=== PATIENT | male | born 1950 | race African-American/Black ===

== ENCOUNTER 2024-05-18 20:44 | Inpatient (IN) | payer OTHER ==
[~2024-05-18] VITALS: Ht 170.2 cm; Wt 75.7 kg
[2024-05-18] MEDS: LEVETIRACETAM 500MG PREMIX 100 ML IV SCH (01:25)
[2024-05-18] MEDS ORDERED: NICARDIPINE 100 MG in SODIUM CHLORIDE 0.9% 60 ML IV PRN ×2 (22:30→22:45)
[2024-05-18] MEDS ORDERED: LEVETIRACETAM 500MG PREMIX 100 ML IV SCH (22:30)
[2024-05-18 22:31] LABS: HEMATOCRIT. 43.2 % (42.0-52.0); HEMOGLOBIN. 14.6 g/dL (14.0-18.0); MEAN CORPUSCULAR HEMOGLOBIN 33.5 pg (28.0-32.0); MEAN CORPUSCULAR HGB CONC 33.8 g/dL (31.0-37.0); MEAN CORPUSCULAR VOLUME 99.2 fL (80.0-94.0); PLATELET 223 x1000/uL (130-400); RED BLOOD CELL COUNT 4.35 mill/uL (4.7-6.1); RED CELL DISTRIBUTION WIDTH 15.3 % (11.6-14.6); WHITE BLOOD COUNT 17.7 x1000/uL (4.5-11.0)
[2024-05-18 22:35] LABS: DIFFERENTIAL COMMENT 1
[2024-05-18 22:43] LABS: CHLORIDE 104 mEq/L (98-107); POTASSIUM 3.6 mEq/L (3.5-5.1); SODIUM 139 mEq/L (136-145)
[2024-05-18 22:44] LABS: CALCIUM 9.1 mg/dL (8.7-10.4); CARBON DIOXIDE 28 mEq/L (21-32)
[2024-05-18 22:49] LABS: CREATININE 1.1 mg/dL (0.6-1.3); GLUCOSE 120 mg/dL (70-105); PROTHROMBIN TIME 11.6 sec (9.6-11.0)
[2024-05-18 22:50] LABS: AMMONIA < 17 uMol/L (<32); UREA NITROGEN BLOOD 49 mg/dL (9-23)
[2024-05-18 22:51] LABS: ALANINE AMINOTRANSFERASE 134 IU/L (10-49); ALBUMIN 3.8 g/dL (3.2-4.8); ASPARTATE AMINOTRANSFERASE 71 IU/L (<34); CREATINE KINASE 418 IU/L (46-171)
[2024-05-18 22:52] LABS: BILIRUBIN DIRECT 0.3 mg/dL (<=3.0); BILIRUBIN TOTAL 0.9 mg/dL (0.1-1.0); PROTEIN TOTAL 6.7 g/dL (6.0-8.3)
[2024-05-18 22:54] LABS: PLATELET ESTIMATE NORMAL; THYROID STIMULATING HORMONE 2.82 uIU/mL (0.55-4.78)
[2024-05-18] MEDS: NICARDIPINE 40MG/200ML PREMIX 200 ML IV PRN (22:54)
[2024-05-18] MEDS: LABETALOL 5MG/ML 4ML INJ IV PRN (22:54)
[2024-05-18 22:55] LABS: ANISOCYTOSIS 1+
[2024-05-18 22:59] LABS: ETHANOL BLOOD < 10 mg/dL (<10); TROPONIN I HIGH SENSITIVITY 69 ng/L (3.0-53)
[2024-05-19] VITALS (86 sets, daily range): BP systolic 83–159; BP diastolic 17–118; PULSE 58–107; RESP 13–40; TEMP 36.3918–37.16964; O2SAT 90–100
[2024-05-19] MEDS ORDERED: DEXAMETHASONE 4MG/ML 1ML VIAL IV SCH
[2024-05-19] MEDS: DEXAMETHASONE 4MG/ML 1ML VIAL IV SCH (01:24)
[2024-05-19] MEDS: DEXT 5%/LACTATED RINGERS 1,000 ML IV ONE (01:31)
[2024-05-19] MEDS: NICARDIPINE 100 MG in SODIUM CHLORIDE 0.9% 60 ML IV PRN (06:30)
[2024-05-19 06:32] LABS: CHLORIDE 104 mEq/L (98-107); HEMATOCRIT 42.2 % (42.0-52.0); HEMOGLOBIN 14.3 g/dL (14.0-18.0); MEAN CORPUSCULAR HEMOGLOBIN 33.9 pg (28.0-32.0); MEAN CORPUSCULAR HGB CONC 33.9 g/dL (31.0-37.0); PLATELET 200 x1000/uL (130-400); POTASSIUM 3.6 mEq/L (3.5-5.1); RED BLOOD CELL COUNT 4.22 mill/uL (4.7-6.1); SODIUM 138 mEq/L (136-145); WHITE BLOOD COUNT 15.7 x1000/uL (4.5-11.0)
[2024-05-19 06:33] LABS: CARBON DIOXIDE 28 mEq/L (21-32)
[2024-05-19 06:38] LABS: CREATININE 0.9 mg/dL (0.6-1.3); GLUCOSE 146 mg/dL (70-105); UREA NITROGEN BLOOD 42 mg/dL (9-23)
[2024-05-19 17:56] LABS: CLARITY URINE CLOUDY (CLEAR); COLOR URINE YELLOW (YELLOW); GLUCOSE URINE TRACE (NEGATIVE); KETONES URINE NEGATIVE (NEGATIVE); LEUKOCYTE ESTERASE URINE NEGATIVE (NEGATIVE); NITRITE URINE NEGATIVE (NEGATIVE); OCCULT BLOOD URINE NEGATIVE (NEGATIVE); PH URINE 5.5 (4.5-8.0); PROTEIN URINE TRACE (NEGATIVE); SPECIFIC GRAVITY URINE 1.026 (1.005-1.030)
[2024-05-19 18:23] LABS: *AMPHETAMINES SCREEN URINE NEGATIVE (NEGATIVE); *BARBITURATES SCREEN URINE PRESUMPTIVE POSITIVE (NEGATIVE); *BENZODIAZEPINES SCREEN URINE NEGATIVE (NEGATIVE); *COCAINE SCREEN URINE NEGATIVE (NEGATIVE); CANNABINOID URINE SCREEN NEGATIVE (NEGATIVE); ECSTASY MDMA SCREEN URINE NEGATIVE (NEGATIVE); METHADONE URINE SCREEN NEGATIVE (NEGATIVE); OPIATES URINE SCREEN NEGATIVE (NEGATIVE); PHENCYCLIDINE URINE SCREEN NEGATIVE (NEGATIVE)
[2024-05-19 18:28] LABS: BACTERIA URINE TRACE; RBC URINE NONE SEEN /hpf (0-2); SQUAMOUS EPITHELIAL CELL URINE FEW /lpf (RARE/1+); WBC URINE NONE SEEN /hpf (0-2)
[2024-05-20] VITALS (95 sets, daily range): BP systolic 102–145; BP diastolic 42–82; PULSE 52–96; RESP 9–26; TEMP 36.55848–36.9474; O2SAT 95–100
[2024-05-20 06:12] LABS: HEMATOCRIT. 40.6 % (42.0-52.0); HEMOGLOBIN. 13.8 g/dL (14.0-18.0); MEAN CORPUSCULAR HEMOGLOBIN 33.8 pg (28.0-32.0); MEAN CORPUSCULAR HGB CONC 33.9 g/dL (31.0-37.0); MEAN CORPUSCULAR VOLUME 99.4 fL (80.0-94.0); MEAN PLATELET VOLUME 9.2 fl (7.4-10.4); PLATELET 246 x1000/uL (130-400); RED BLOOD CELL COUNT 4.08 mill/uL (4.7-6.1); RED CELL DISTRIBUTION WIDTH 14.8 % (11.6-14.6); WHITE BLOOD COUNT 20.8 x1000/uL (4.5-11.0)
[2024-05-20 06:17] LABS: CARBON DIOXIDE 28 mEq/L (21-32); CHLORIDE 108 mEq/L (98-107); SODIUM 142 mEq/L (136-145)
[2024-05-20 06:19] LABS: CALCIUM 9.2 mg/dL (8.7-10.4)
[2024-05-20 06:23] LABS: CREATININE 0.8 mg/dL (0.6-1.3); GLUCOSE 178 mg/dL (70-105); UREA NITROGEN BLOOD 34 mg/dL (9-23)
[2024-05-20 06:36] LABS: DIFFERENTIAL COMMENT 1
[2024-05-20] MEDS: PANTOPRAZOLE SODIUM 40 MG/VIAL IV SCH (09:28)
[2024-05-20] MEDS ORDERED: NALOXONE HCL 0.4MG/ML VIAL IV PRN (13:00)
[2024-05-20] MEDS: DEXT 5%/LACTATED RINGERS 1,000 ML IV SCH (20:26)
[2024-05-21] VITALS (99 sets, daily range): BP systolic 92–157; BP diastolic 45–134; PULSE 55–95; RESP 9–30; TEMP 36.6696–36.9474; O2SAT 93–100
[2024-05-21 01:10] LABS: PLATELET ESTIMATE NORMAL
[2024-05-21 09:31] LABS: HEMATOCRIT 38.4 % (42.0-52.0); HEMOGLOBIN 13.1 g/dL (14.0-18.0); MEAN CORPUSCULAR HEMOGLOBIN 33.4 pg (28.0-32.0); MEAN CORPUSCULAR HGB CONC 34.1 g/dL (31.0-37.0); MEAN CORPUSCULAR VOLUME 98.1 fL (80.0-94.0); PLATELET 236 x1000/uL (130-400); RED BLOOD CELL COUNT 3.91 mill/uL (4.7-6.1); RED CELL DISTRIBUTION WIDTH 14.8 % (11.6-14.6); WHITE BLOOD COUNT 18.3 x1000/uL (4.5-11.0)
[2024-05-21 09:47] LABS: CHLORIDE 105 mEq/L (98-107); POTASSIUM 3.6 mEq/L (3.5-5.1); SODIUM 138 mEq/L (136-145)
[2024-05-21 09:48] LABS: CALCIUM 9.1 mg/dL (8.7-10.4); CARBON DIOXIDE 25 mEq/L (21-32)
[2024-05-21 09:53] LABS: CREATININE 0.8 mg/dL (0.6-1.3); GLUCOSE 172 mg/dL (70-105); UREA NITROGEN BLOOD 29 mg/dL (9-23)
[2024-05-22] VITALS (87 sets, daily range): BP systolic 105–167; BP diastolic 54–142; PULSE 55–102; RESP 13–26; TEMP 36.3918–36.9474; O2SAT 96–100
[2024-05-22] MEDS: MORPHINE SULFATE 2 MG/ML INJ (NOT FOR IM USE) IV PRN (03:51)
[2024-05-22 06:38] LABS: HEMATOCRIT 38.9 % (42.0-52.0); HEMOGLOBIN 13.2 g/dL (14.0-18.0); MEAN CORPUSCULAR HEMOGLOBIN 34.1 pg (28.0-32.0); MEAN CORPUSCULAR HGB CONC 34.1 g/dL (31.0-37.0); PLATELET 248 x1000/uL (130-400); RED BLOOD CELL COUNT 3.89 mill/uL (4.7-6.1); RED CELL DISTRIBUTION WIDTH 14.6 % (11.6-14.6); WHITE BLOOD COUNT 20.5 x1000/uL (4.5-11.0)
[2024-05-22 07:19] LABS: CARBON DIOXIDE 22 mEq/L (21-32); CHLORIDE 106 mEq/L (98-107); POTASSIUM 3.6 mEq/L (3.5-5.1); SODIUM 138 mEq/L (136-145)
[2024-05-22 07:21] LABS: CALCIUM 9.2 mg/dL (8.7-10.4)
[2024-05-22 07:25] LABS: CREATININE 0.7 mg/dL (0.6-1.3); GLUCOSE 116 mg/dL (70-105); UREA NITROGEN BLOOD 23 mg/dL (9-23)
[2024-05-22] MEDS: HYDRALAZINE HCL 25MG TABLET PO SCH (10:21)
[2024-05-22] MEDS: AMLODIPINE 10MG TABLET PO SCH (10:22)
[2024-05-22] MEDS ORDERED: HYDRALAZINE HCL 25MG TABLET PO SCH (14:00)
[2024-05-22] MEDS: HYDRALAZINE 20MG/ML VIAL IV PRN (16:31)
[2024-05-22] MEDS: HYDRALAZINE HCL 50MG TABLET PO SCH (21:56)
[2024-05-23] VITALS (64 sets, daily range): BP systolic 96–158; BP diastolic 53–106; PULSE 54–86; RESP 13–34; TEMP 36.72516–36.89184; O2SAT 95–100
[2024-05-23 05:44] LABS: HEMATOCRIT. 35.4 % (42.0-52.0); HEMOGLOBIN. 12.7 g/dL (14.0-18.0); MEAN CORPUSCULAR HEMOGLOBIN 34.7 pg (28.0-32.0); MEAN CORPUSCULAR HGB CONC 35.9 g/dL (31.0-37.0); MEAN CORPUSCULAR VOLUME 96.8 fL (80.0-94.0); MEAN PLATELET VOLUME 9.3 fl (7.4-10.4); PLATELET 247 x1000/uL (130-400); RED BLOOD CELL COUNT 3.65 mill/uL (4.7-6.1); RED CELL DISTRIBUTION WIDTH 14.5 % (11.6-14.6); WHITE BLOOD COUNT 14.7 x1000/uL (4.5-11.0)
[2024-05-23 05:49] LABS: CHLORIDE 106 mEq/L (98-107); POTASSIUM 3.3 mEq/L (3.5-5.1); SODIUM 135 mEq/L (136-145)
[2024-05-23 05:50] LABS: CALCIUM 8.4 mg/dL (8.7-10.4); CARBON DIOXIDE 23 mEq/L (21-32)
[2024-05-23 05:55] LABS: CREATININE 0.6 mg/dL (0.6-1.3); GLUCOSE 123 mg/dL (70-105); UREA NITROGEN BLOOD 18 mg/dL (9-23)
[2024-05-23 05:59] LABS: PHOSPHORUS 3.3 mg/dL (2.5-4.9); PROTHROMBIN TIME 11.4 sec (9.6-11.0)
[2024-05-23 06:33] LABS: DIFFERENTIAL COMMENT 1
[2024-05-23] MEDS: POTASSIUM CHLORIDE 20MEQ TABLET SR PO SCH (10:06)
[2024-05-23 14:57] LABS: PLATELET ESTIMATE NORMAL
[2024-05-24] VITALS: BP 159/68; PULSE 70; RESP 19; TEMP 36.55848; O2SAT 100
[2024-05-24 04:00] VITALS: BP 138/70; PULSE 70; RESP 19; TEMP 36.28068; O2SAT 99
[2024-05-24 07:46] LABS: HEMATOCRIT. 38.3 % (42.0-52.0); HEMOGLOBIN. 12.8 g/dL (14.0-18.0); MEAN CORPUSCULAR HEMOGLOBIN 33.4 pg (28.0-32.0); MEAN CORPUSCULAR HGB CONC 33.5 g/dL (31.0-37.0); MEAN CORPUSCULAR VOLUME 99.6 fL (80.0-94.0); MEAN PLATELET VOLUME 8.9 fl (7.4-10.4); PLATELET 251 x1000/uL (130-400); RED BLOOD CELL COUNT 3.84 mill/uL (4.7-6.1); RED CELL DISTRIBUTION WIDTH 14.9 % (11.6-14.6)
[2024-05-24 07:50] LABS: CALCIUM 8.6 mg/dL (8.7-10.4); CARBON DIOXIDE 25 mEq/L (21-32); CHLORIDE 111 mEq/L (98-107); POTASSIUM 3.6 mEq/L (3.5-5.1); SODIUM 141 mEq/L (136-145)
[2024-05-24 07:56] LABS: CREATININE 0.7 mg/dL (0.6-1.3); GLUCOSE 103 mg/dL (70-105); UREA NITROGEN BLOOD 21 mg/dL (9-23)
[2024-05-24 08:00] VITALS: BP 156/73; PULSE 65; RESP 20; TEMP 36.33624; O2SAT 10
[2024-05-24 08:03] LABS: DIFFERENTIAL COMMENT 1
[2024-05-24 12:00] VITALS: BP 129/69; PULSE 67; RESP 18; TEMP 36.61404; O2SAT 99
[2024-05-24 16:00] VITALS: BP 138/63; PULSE 63; RESP 19; TEMP 36.3918; O2SAT 98
[2024-05-24] MEDS: RISPERIDONE 0.25MG TABLET PO SCH (18:13)
[2024-05-24 20:00] VITALS: BP 141/86; PULSE 78; RESP 19; TEMP 36.61404; O2SAT 99
[2024-05-24 22:31] LABS: PLATELET ESTIMATE NORMAL
[2024-05-25] VITALS (7 sets, daily range): BP systolic 104–201; BP diastolic 53–79; PULSE 70–93; RESP 18–22; TEMP 36.16956–36.83628; O2SAT 97–100
[2024-05-25] MEDS: MULTIVITAMINS,THER W-MINERALS TABLET PO SCH (14:00)
[2024-05-26] VITALS: BP 153/68; PULSE 73; RESP 20; TEMP 35.89176; O2SAT 97
[2024-05-26 04:00] VITALS: BP 167/80; PULSE 82; RESP 19; TEMP 36.114; O2SAT 96
[2024-05-26 08:00] VITALS: BP 141/70; PULSE 90; RESP 18; TEMP 36.44736; O2SAT 95
[2024-05-26] MEDS: PANTOPRAZOLE 40MG DR TABLET PO ONE (11:07)
[2024-05-26] MEDS: LEVETIRACETAM 500MG TABLET PO SCH (11:08)
[2024-05-26 12:00] VITALS: BP 127/77; PULSE 86; RESP 18; TEMP 36.61404; O2SAT 100
[2024-05-26 16:00] VITALS: BP 130/80; PULSE 75; RESP 18; TEMP 36.6696; O2SAT 100
[2024-05-26 20:00] VITALS: BP 102/42; PULSE 75; RESP 17; TEMP 36.55848; O2SAT 97
[2024-05-26 20:40] LABS: HEMATOCRIT. 25.9 % (42.0-52.0); HEMOGLOBIN. 8.7 g/dL (14.0-18.0); MEAN CORPUSCULAR HEMOGLOBIN 33.7 pg (28.0-32.0); MEAN CORPUSCULAR HGB CONC 33.5 g/dL (31.0-37.0); MEAN CORPUSCULAR VOLUME 100.6 fL (80.0-94.0); MEAN PLATELET VOLUME 8.6 fl (7.4-10.4); PLATELET 352 x1000/uL (130-400); RED BLOOD CELL COUNT 2.57 mill/uL (4.7-6.1); RED CELL DISTRIBUTION WIDTH 14.5 % (11.6-14.6)
[2024-05-26 20:44] LABS: DIFFERENTIAL COMMENT 1
[2024-05-26 20:46] LABS: CHLORIDE 108 mEq/L (98-107); POTASSIUM 4.7 mEq/L (3.5-5.1); SODIUM 135 mEq/L (136-145)
[2024-05-26 20:47] LABS: CARBON DIOXIDE 19 mEq/L (21-32)
[2024-05-26 20:48] LABS: CALCIUM 7.8 mg/dL (8.7-10.4)
[2024-05-26 20:52] LABS: GLUCOSE 245 mg/dL (70-105)
[2024-05-26 20:53] LABS: CREATININE 1.4 mg/dL (0.6-1.3); UREA NITROGEN BLOOD 28 mg/dL (9-23)
[2024-05-26 20:54] LABS: ALANINE AMINOTRANSFERASE 43 IU/L (10-49)
[2024-05-26 20:55] LABS: ALBUMIN 2.5 g/dL (3.2-4.8); ASPARTATE AMINOTRANSFERASE 25 IU/L (<34); BILIRUBIN TOTAL 0.2 mg/dL (0.1-1.0)
[2024-05-26 20:59] LABS: PROTEIN TOTAL 4.6 g/dL (6.0-8.3)
[2024-05-26 21:30] LABS: PLATELET ESTIMATE NORMAL
[2024-05-27] VITALS (32 sets, daily range): BP systolic 59–177; BP diastolic 41–126; PULSE 56–102; RESP 17–26; TEMP 36.05844–36.83628; O2SAT 97–100
[2024-05-27] MEDS: DEXT 5%/0.45% NACL 1000ML 1,000 ML IV SCH (09:58)
[2024-05-27 13:24] LABS: HEMATOCRIT 23.2 % (42.0-52.0); HEMOGLOBIN 7.6 g/dL (14.0-18.0)
[2024-05-27] MEDS ORDERED: PROPOFOL 10MG/ML 100ML 100 ML IV PRN (13:30)
[2024-05-27] MEDS ORDERED: NOREPINEPHRINE 8MG/250ML PMX 250 ML IV ONE (13:30)
[2024-05-27] MEDS: PHENYTOIN SODIUM 500 MG in SODIUM CHLORIDE 0.9% 50 ML IV NR (14:19)
[2024-05-27] MEDS ORDERED: CEFTRIAXONE 250 MG in DEXTROSE 5% WATER 50 ML IV SCH (17:45)
[2024-05-27 18:26] LABS: BG BASE EXCESS -6.4 mmol/L (-2.0-3.0); BG CARBOXYHEMOGLOBIN 0.1 % (0.5-1.5); BG DEOXYHEMOGLOBIN 0.4 % (0.0-5.0); BG FRACTION INSPIRED OXYGEN 100; BG HCO3 ACT 17.4 mmol/L (21.0-28.0); BG METHEMOGLOBIN 0.3 % (0.5-1.5); BG OXYGEN SATURATION 99.6 % (94.0-98.0); BG OXYHEMOGLOBIN 99.2 % (94.0-98.0); BG PCO2 28.7 mmHg (35.0-48.0); BG PO2 533.2 mmHg (83.0-108.0); BG SAMPLE SITE RIGHT BRACHIAL; BG TOTAL HEMOGLOBIN 9.4 g/dL (13.5-17.5); BG VENT MODE VENT - AC
[2024-05-27] MEDS: LEVETIRACETAM 500MG PREMIX 100 ML IV NR (18:30)
[2024-05-27] MEDS: DEXAMETHASONE 4MG/ML 1ML VIAL IV SCH (18:30)
[2024-05-27] MEDS: PROPOFOL 10MG/ML 100ML 100 ML IV PRN (18:31)
[2024-05-27] MEDS: DEXT 5%/LACTATED RINGERS 1,000 ML IV SCH (18:31)
[2024-05-27] MEDS: IPRATROPIUM/ALBUTEROL 0.5-3(2.5)MG/3ML NEB HHN SCH (20:40)
[2024-05-27] MEDS: CEFTRIAXONE 1GM/50ML 50ML IV SCH (20:59)
[2024-05-27] MEDS: PANTOPRAZOLE SODIUM 40 MG/VIAL IV SCH (20:59)
[2024-05-27] MEDS: PHENYTOIN SODIUM 100MG/2ML VIAL IV SCH (20:59)
[2024-05-27] MEDS ORDERED: PHENYTOIN SODIUM 300 MG in SODIUM CHLORIDE 0.9% 50 ML IV SCH (21:00)
[2024-05-27] MEDS ORDERED: PHENYTOIN SODIUM 100MG/2ML VIAL IV SCH (22:00)
[2024-05-27 22:28] LABS: LACTIC ACID 5.7 mmol/L (0.4-2.0)
[2024-05-28] VITALS (96 sets, daily range): BP systolic 97–145; BP diastolic 33–93; PULSE 67–105; RESP 18–33; TEMP 35.5584–36.33624; O2SAT 99–100
[2024-05-28 00:08] LABS: HEMATOCRIT 30.2 % (42.0-52.0); HEMOGLOBIN 10.5 g/dL (14.0-18.0)
[2024-05-28] MEDS ORDERED: BACITRACIN 14GM TUBE TOP ONE (05:48)
[2024-05-28] MEDS ORDERED: LIDOCAINE HCL/EPINEPHRINE 1%-EPI 1:100,000 20ML VIAL ONE (05:48)
[2024-05-28] MEDS ORDERED: THROMBIN (BOVINE) 5000 UNITS/VIAL TOP ONE (05:48)
[2024-05-28] MEDS ORDERED: GENTAMICIN SULF 40MG/ML 2ML VIAL ONE (05:48)
[2024-05-28 06:13] LABS: HEMATOCRIT. 35.9 % (42.0-52.0); HEMOGLOBIN. 11.6 g/dL (14.0-18.0); MEAN CORPUSCULAR HEMOGLOBIN 32.4 pg (28.0-32.0); MEAN CORPUSCULAR HGB CONC 32.4 g/dL (31.0-37.0); MEAN CORPUSCULAR VOLUME 99.9 fL (80.0-94.0); MEAN PLATELET VOLUME 8.5 fl (7.4-10.4); PLATELET 295 x1000/uL (130-400); RED BLOOD CELL COUNT 3.59 mill/uL (4.7-6.1); RED CELL DISTRIBUTION WIDTH 17.6 % (11.6-14.6); WHITE BLOOD COUNT 25.6 x1000/uL (4.5-11.0)
[2024-05-28 06:23] LABS: DIFFERENTIAL COMMENT 1
[2024-05-28] MEDS ORDERED: LEVETIRACETAM 1,000MG in NACL 100ML PREMIX IV SCH (09:00)
[2024-05-28] MEDS ORDERED: NALOXONE HCL 0.4MG/ML VIAL IV PRN (09:15)
[2024-05-28] MEDS: LEVETIRACETAM 1000MG PREMIX 100 ML IV SCH (09:32)
[2024-05-28] MEDS ORDERED: NICARDIPINE 100 MG in SODIUM CHLORIDE 0.9% 60 ML IV PRN (10:00)
[2024-05-28 11:42] LABS: PHENYTOIN 4.4 ug/mL (10-20)
[2024-05-28 11:46] LABS: CREATININE 3.1 mg/dL (0.6-1.3)
[2024-05-28 11:55] LABS: POTASSIUM 6.4 mEq/L (3.5-5.1)
[2024-05-28 12:08] LABS: BG BASE EXCESS -11.7 mmol/L (-2.0-3.0); BG CARBOXYHEMOGLOBIN 0.2 % (0.5-1.5); BG DEOXYHEMOGLOBIN 0.9 % (0.0-5.0); BG FRACTION INSPIRED OXYGEN 40; BG HCO3 ACT 16.3 mmol/L (21.0-28.0); BG METHEMOGLOBIN 0.3 % (0.5-1.5); BG OXYGEN SATURATION 99.1 % (94.0-98.0); BG OXYHEMOGLOBIN 98.6 % (94.0-98.0); BG PCO2 45.1 mmHg (35.0-48.0); BG PH 7.177 (7.350-7.450); BG SAMPLE SITE RIGHT RADIAL; BG TOTAL HEMOGLOBIN 13.3 g/dL (13.5-17.5); BG VENT MODE VENT - AC
[2024-05-28] MEDS ORDERED: DEXTROSE 50% WATER 50ML SYRINGE IV PRN (12:15)
[2024-05-28] MEDS ORDERED: PHENYLEPHRINE 50MG/250ML PMX 250 ML IV PRN (12:15)
[2024-05-28] MEDS: BLOOD SUGAR DIAGNOSTIC STRIP TEST SCH (12:18)
[2024-05-28] MEDS: SODIUM BICARBONATE 8.4% 50MEQ/50ML SYR IV NR ×2 (12:24→23:55)
[2024-05-28] MEDS: INSULIN LISPRO 100 UNITS/ML SUBCUT SCH (12:25)
[2024-05-28 12:43] LABS: HEMATOCRIT 33.3 % (42.0-52.0); HEMOGLOBIN 10.7 g/dL (14.0-18.0)
[2024-05-28 12:46] LABS: CLARITY URINE CLEAR (CLEAR); COLOR URINE YELLOW (YELLOW); GLUCOSE URINE NEGATIVE (NEGATIVE); KETONES URINE NEGATIVE (NEGATIVE); LEUKOCYTE ESTERASE URINE NEGATIVE (NEGATIVE); NITRITE URINE NEGATIVE (NEGATIVE); OCCULT BLOOD URINE NEGATIVE (NEGATIVE); PROTEIN URINE TRACE (NEGATIVE); SPECIFIC GRAVITY URINE 1.018 (1.005-1.030); UROBILINOGEN URINE 0.2 E.U./dL (0.2-1.0)
[2024-05-28 12:46] LABS: CARBON DIOXIDE 15 mEq/L (21-32); CHLORIDE 107 mEq/L (98-107); SODIUM 136 mEq/L (136-145)
[2024-05-28 12:47] LABS: CALCIUM 7.8 mg/dL (8.7-10.4)
[2024-05-28 12:52] LABS: CREATININE 3.3 mg/dL (0.6-1.3); GLUCOSE 231 mg/dL (70-105); UREA NITROGEN BLOOD 78 mg/dL (9-23)
[2024-05-28 12:53] LABS: ALANINE AMINOTRANSFERASE 133 IU/L (10-49); ALBUMIN 3.2 g/dL (3.2-4.8); ASPARTATE AMINOTRANSFERASE 68 IU/L (<34)
[2024-05-28 12:54] LABS: BILIRUBIN TOTAL 0.3 mg/dL (0.1-1.0); PROTEIN TOTAL 5.8 g/dL (6.0-8.3)
[2024-05-28 13:03] LABS: POTASSIUM 6.5 mEq/L (3.5-5.1)
[2024-05-28 13:19] LABS: BACTERIA URINE NONE SEEN; RBC URINE 0-2 /hpf (0-2); SQUAMOUS EPITHELIAL CELL URINE RARE /lpf (RARE/1+); WBC URINE 0-2 /hpf (0-2); YEAST URINE NONE SEEN
[2024-05-28 13:20] LABS: HYALINE CASTS URINE 0-5 /lpf
[2024-05-28] MEDS ORDERED: CEFAZOLIN SODIUM 1000MG/VIAL IV SCH (14:00)
[2024-05-28] MEDS: SODIUM BICARBONATE 8.4% 50MEQ/50ML SYR IV ONE ×2 (14:10→18:44)
[2024-05-28] MEDS: DEXTROSE 50% WATER 50ML SYRINGE IV NR ×2 (14:10→23:55)
[2024-05-28] MEDS: CALCIUM CHLORIDE 1GM/10ML SYR IV NR (14:10)
[2024-05-28] MEDS: INSULIN REGULAR (HUMULIN R) 1000UNITS/10ML VIAL IV NR ×2 (14:20→23:56)
[2024-05-28 17:23] LABS: BG CARBOXYHEMOGLOBIN 0.9 % (0.5-1.5); BG DEOXYHEMOGLOBIN 0.7 % (0.0-5.0); BG FRACTION INSPIRED OXYGEN 40; BG HCO3 ACT 17.2 mmol/L (21.0-28.0); BG METHEMOGLOBIN 0.3 % (0.5-1.5); BG OXYGEN SATURATION 99.3 % (94.0-98.0); BG OXYHEMOGLOBIN 98.1 % (94.0-98.0); BG PCO2 34.3 mmHg (35.0-48.0); BG PH 7.318 (7.350-7.450); BG PO2 210.2 mmHg (83.0-108.0); BG SAMPLE SITE RIGHT BRACHIAL; BG TOTAL HEMOGLOBIN 13.2 g/dL (13.5-17.5); BG VENT MODE VENT - AC
[2024-05-28 17:52] LABS: POTASSIUM 6.4 mEq/L (3.5-5.1)
[2024-05-28 18:10] LABS: HEMATOCRIT 40.1 % (42.0-52.0); HEMOGLOBIN 12.5 g/dL (14.0-18.0)
[2024-05-28] MEDS ORDERED: CALCIUM GLUCONATE 1GM PREMIX 50 ML IV ONE (18:10)
[2024-05-28] MEDS ORDERED: INSULIN REGULAR (HUMULIN R) 1000UNITS/10ML VIAL IV ONE (18:10)
[2024-05-28] MEDS: DEXTROSE 50% WATER 50ML SYRINGE IV ONE (18:44)
[2024-05-28] MEDS: INSULIN REGULAR (HUMULIN R) 1000UNITS/10ML VIAL IV SCH (18:45)
[2024-05-28] MEDS ORDERED: SODIUM BICARBONATE 150 MEQ in DEXTROSE 5% WATER 1,000 ML IV SCH (20:00)
[2024-05-28 22:10] LABS: POTASSIUM 6.4 mEq/L (3.5-5.1)
[2024-05-28 23:41] LABS: ANISOCYTOSIS 1+; NUCLEATED RED BLOOD CELLS 2 /100 WBC; PLATELET ESTIMATE NORMAL
[2024-05-28] MEDS: SODIUM ZIRCONIUM CYCLOSILICATE 10GM/PACKET NG NR (23:55)
[2024-05-28] MEDS: SODIUM BICARBONATE 150 MEQ in DEXTROSE 5% WATER 850 ML IV SCH (23:58)
[2024-05-29] VITALS (107 sets, daily range): BP systolic 85–155; BP diastolic 42–100; PULSE 84–106; RESP 14–28; TEMP 36.05844–36.6696; O2SAT 95–100
[2024-05-29] MEDS: CALCIUM GLUCONATE 1GM PREMIX 50 ML IV NR (00:05)
[2024-05-29 01:22] LABS: HEMATOCRIT 32.8 % (42.0-52.0)
[2024-05-29 04:22] LABS: MEAN CORPUSCULAR HGB CONC 34.4 g/dL (31.0-37.0); MEAN PLATELET VOLUME 8.1 fl (7.4-10.4); PLATELET 272 x1000/uL (130-400); RED BLOOD CELL COUNT 3.34 mill/uL (4.7-6.1); WHITE BLOOD COUNT 35.1 x1000/uL (4.5-11.0)
[2024-05-29 04:24] LABS: POTASSIUM 5.4 mEq/L (3.5-5.1)
[2024-05-29 04:26] LABS: CALCIUM 8.4 mg/dL (8.7-10.4)
[2024-05-29 04:30] LABS: CREATININE 3.7 mg/dL (0.6-1.3)
[2024-05-29 04:39] LABS: DIFFERENTIAL COMMENT 1
[2024-05-29] MEDS: PROPOFOL 10MG/ML 100ML 100 ML IV PRN (11:09)
[2024-05-29 11:22] LABS: BG BASE EXCESS -3.4 mmol/L (-2.0-3.0); BG CARBOXYHEMOGLOBIN 0.3 % (0.5-1.5); BG DEOXYHEMOGLOBIN 4.6 % (0.0-5.0); BG FRACTION INSPIRED OXYGEN 40; BG HCO3 ACT 19.8 mmol/L (21.0-28.0); BG METHEMOGLOBIN 0.3 % (0.5-1.5); BG OXYGEN SATURATION 95.4 % (94.0-98.0); BG OXYHEMOGLOBIN 94.8 % (94.0-98.0); BG PCO2 29.2 mmHg (35.0-48.0); BG PH 7.449 (7.350-7.450); BG PO2 80.1 mmHg (83.0-108.0); BG SAMPLE SITE RIGHT RADIAL; BG TOTAL HEMOGLOBIN 9.4 g/dL (13.5-17.5); BG VENT MODE VENT - AC
[2024-05-29 12:42] LABS: HEPATITIS B SURFACE ANTIGEN NEGATIVE (Negative)
[2024-05-29 13:02] LABS: HEPATITIS A AB IGM NEGATIVE (Negative)
[2024-05-29 13:03] LABS: HEPATITIS B CORE AB IGM NEGATIVE (Negative); HEPATITIS C AB NON REACTIVE (Neg) (Negative)
[2024-05-29] MEDS ORDERED: CEFEPIME 2GM IN DEXT 5% 100ML IV SCH (13:15)
[2024-05-29 13:36] LABS: NUCLEATED RED BLOOD CELLS 2 /100 WBC
[2024-05-29 13:38] LABS: ANISOCYTOSIS 1+; PLATELET ESTIMATE NORMAL
[2024-05-29] MEDS: PHENYLEPHRINE 50 MG in SODIUM CHLORIDE 0.9% 245 ML IV PRN (14:02)
[2024-05-29] MEDS: CEFEPIME 2GM/100ML 100 ML IV SCH (15:23)
[2024-05-30] VITALS (69 sets, daily range): BP systolic 113–155; BP diastolic 49–80; PULSE 88–114; RESP 14–33; TEMP 36.3918–37.33632; O2SAT 100
[2024-05-30] MEDS: PROPOFOL 10MG/ML 100ML 100 ML IV PRN (03:03)
[2024-05-30 06:11] LABS: CALCIUM 7.9 mg/dL (8.7-10.4); CHLORIDE 105 mEq/L (98-107); SODIUM 144 mEq/L (136-145)
[2024-05-30 06:12] LABS: CARBON DIOXIDE 29 mEq/L (21-32)
[2024-05-30 06:17] LABS: CREATININE 3.8 mg/dL (0.6-1.3); GLUCOSE 146 mg/dL (70-105); IRON 34 ug/dL (65-175); TRIGLYCERIDE 208 mg/dL (0-150); UREA NITROGEN BLOOD 94 mg/dL (9-23)
[2024-05-30 06:20] LABS: TOTAL IRON BINDING CAPACITY 275 ug/dl (250-425)
[2024-05-30 06:21] LABS: BASOPHILS % 0.1 % (0.0-2.0); EOSINOPHILS % 0.8 % (0.0-5.0); HEMATOCRIT. 25.2 % (42.0-52.0); HEMOGLOBIN. 8.6 g/dL (14.0-18.0); LYMPHOCYTES % 3.6 % (20.0-50.0); MEAN CORPUSCULAR HEMOGLOBIN 33.5 pg (28.0-32.0); MEAN CORPUSCULAR HGB CONC 34.2 g/dL (31.0-37.0); MEAN PLATELET VOLUME 8.7 fl (7.4-10.4); MONOCYTES % 9.1 % (2.0-8.0); NEUTROPHILS % 86.4 % (40.0-76.0); PLATELET 137 x1000/uL (130-400); RED BLOOD CELL COUNT 2.57 mill/uL (4.7-6.1); RED CELL DISTRIBUTION WIDTH 16.4 % (11.6-14.6); WHITE BLOOD COUNT 32.1 x1000/uL (4.5-11.0)
[2024-05-30 07:36] LABS: DIFFERENTIAL COMMENT 1
[2024-05-31] VITALS (95 sets, daily range): BP systolic 81–148; BP diastolic 48–77; PULSE 77–98; RESP 10–27; TEMP 36.6696–37.2252; O2SAT 99–100
[2024-05-31 05:32] LABS: HEMOGLOBIN. 7.5 g/dL (14.0-18.0); MEAN CORPUSCULAR HEMOGLOBIN 32.7 pg (28.0-32.0); MEAN CORPUSCULAR HGB CONC 32.8 g/dL (31.0-37.0); MEAN CORPUSCULAR VOLUME 99.7 fL (80.0-94.0); MEAN PLATELET VOLUME 8.4 fl (7.4-10.4); PLATELET 100 x1000/uL (130-400); RED CELL DISTRIBUTION WIDTH 16.5 % (11.6-14.6); WHITE BLOOD COUNT 21.8 x1000/uL (4.5-11.0)
[2024-05-31 05:41] LABS: CHLORIDE 110 mEq/L (98-107); POTASSIUM 4.2 mEq/L (3.5-5.1); SODIUM 149 mEq/L (136-145)
[2024-05-31 05:42] LABS: CALCIUM 7.7 mg/dL (8.7-10.4); CARBON DIOXIDE 32 mEq/L (21-32)
[2024-05-31 05:47] LABS: CREATININE 3.1 mg/dL (0.6-1.3); GLUCOSE 172 mg/dL (70-105)
[2024-05-31 05:49] LABS: ALANINE AMINOTRANSFERASE 39 IU/L (10-49); ALBUMIN 2.8 g/dL (3.2-4.8); ASPARTATE AMINOTRANSFERASE 63 IU/L (<34)
[2024-05-31 05:50] LABS: BILIRUBIN DIRECT 0.1 mg/dL (<=3.0); BILIRUBIN TOTAL 0.2 mg/dL (0.1-1.0); PROTEIN TOTAL 4.8 g/dL (6.0-8.3)
[2024-05-31 05:52] LABS: FERRITIN 169 ng/mL (22-322); FOLIC ACID (FOLATE) SERUM 16.93 ng/mL (>5.38); INR 1.1; PROTHROMBIN TIME 11.9 sec (9.6-11.0)
[2024-05-31 05:53] LABS: VITAMIN B12 SERUM 1228 pg/mL (211-911)
[2024-05-31 06:11] LABS: UREA NITROGEN BLOOD 101 mg/dL (9-23)
[2024-05-31 07:21] LABS: DIFFERENTIAL COMMENT 1
[2024-05-31] MEDS ORDERED: PHENYLEPHRINE 50 MG in DEXT 5% WATER 245 ML IV PRN (09:00)
[2024-05-31 16:21] LABS: NUCLEATED RED BLOOD CELLS 12 /100 WBC
[2024-05-31 16:22] LABS: ANISOCYTOSIS 1+; PLATELET ESTIMATE DECREASED
[2024-05-31] MEDS: EPOETIN ALFA-EPBX 4,000 UNIT/ML VIAL SUBCUT SCH (21:02)
[2024-06-01] VITALS (77 sets, daily range): BP systolic 113–162; BP diastolic 54–78; PULSE 62–94; RESP 9–25; TEMP 36.44736–38.00304; O2SAT 98–100
[2024-06-01 05:52] LABS: HEMATOCRIT. 21.1 % (42.0-52.0); MEAN CORPUSCULAR HEMOGLOBIN 32.8 pg (28.0-32.0); MEAN CORPUSCULAR HGB CONC 32.3 g/dL (31.0-37.0); MEAN CORPUSCULAR VOLUME 101.4 fL (80.0-94.0); MEAN PLATELET VOLUME 8.3 fl (7.4-10.4); PLATELET 86 x1000/uL (130-400); RED BLOOD CELL COUNT 2.08 mill/uL (4.7-6.1); WHITE BLOOD COUNT 14.3 x1000/uL (4.5-11.0)
[2024-06-01 06:08] LABS: CALCIUM 8.2 mg/dL (8.7-10.4); CARBON DIOXIDE 26 mEq/L (21-32); CHLORIDE 109 mEq/L (98-107); POTASSIUM 4.3 mEq/L (3.5-5.1); SODIUM 143 mEq/L (136-145)
[2024-06-01 06:13] LABS: GLUCOSE 129 mg/dL (70-105)
[2024-06-01 06:14] LABS: ALANINE AMINOTRANSFERASE 36 IU/L (10-49); ALBUMIN 2.6 g/dL (3.2-4.8); UREA NITROGEN BLOOD 62 mg/dL (9-23)
[2024-06-01 06:15] LABS: ASPARTATE AMINOTRANSFERASE 65 IU/L (<34)
[2024-06-01 06:16] LABS: BILIRUBIN TOTAL 0.2 mg/dL (0.1-1.0); DIFFERENTIAL COMMENT 1; PROTEIN TOTAL 4.7 g/dL (6.0-8.3)
[2024-06-01 06:17] LABS: HEMOGLOBIN. 6.8 g/dL (14.0-18.0)
[2024-06-01 06:28] LABS: CREATININE 1.9 mg/dL (0.6-1.3)
[2024-06-01] MEDS ORDERED: BISACODYL 5MG TABLET PO PRN (09:45)
[2024-06-01] MEDS: LACTULOSE 20G/30ML UDC PO NR (10:18)
[2024-06-01] MEDS: DOCUSATE SODIUM SUGAR FREE 100MG/10ML UDC NG SCH (10:18)
[2024-06-01 12:00] LABS: CARBON DIOXIDE 28 mEq/L (21-32); CHLORIDE 111 mEq/L (98-107); POTASSIUM 3.7 mEq/L (3.5-5.1); SODIUM 146 mEq/L (136-145)
[2024-06-01 12:01] LABS: CALCIUM 8.1 mg/dL (8.7-10.4)
[2024-06-01 12:05] LABS: CREATININE 1.8 mg/dL (0.6-1.3); GLUCOSE 169 mg/dL (70-105)
[2024-06-01 12:06] LABS: UREA NITROGEN BLOOD 64 mg/dL (9-23)
[2024-06-01 12:07] LABS: ALANINE AMINOTRANSFERASE 39 IU/L (10-49); ALBUMIN 2.8 g/dL (3.2-4.8); ASPARTATE AMINOTRANSFERASE 72 IU/L (<34)
[2024-06-01 12:08] LABS: BILIRUBIN TOTAL 0.2 mg/dL (0.1-1.0); PROTEIN TOTAL 4.7 g/dL (6.0-8.3)
[2024-06-01] MEDS: MORPHINE SULFATE 4 MG/ML INJ (FOR IV/IM USE) IV PRN (14:55)
[2024-06-01 15:26] LABS: NUCLEATED RED BLOOD CELLS 1 /100 WBC; PLATELET ESTIMATE SLIGHTLY DECREASED
[2024-06-01] MEDS ORDERED: LORAZEPAM 2MG/ML INJ IV PRN (17:15)
[2024-06-01 21:27] LABS: HEMATOCRIT 29.8 % (42.0-52.0); HEMOGLOBIN 9.4 g/dL (14.0-18.0)
[2024-06-01 21:47] LABS: PROTHROMBIN TIME 10.7 sec (9.6-11.0)
[2024-06-02] VITALS (65 sets, daily range): BP systolic 123–162; BP diastolic 54–117; PULSE 51–110; RESP 12–35; TEMP 36.55848–36.89184; O2SAT 99–100
[2024-06-02 06:20] LABS: HEMATOCRIT. 30.2 % (42.0-52.0); HEMOGLOBIN. 10.1 g/dL (14.0-18.0); MEAN CORPUSCULAR HEMOGLOBIN 33.1 pg (28.0-32.0); MEAN CORPUSCULAR HGB CONC 33.6 g/dL (31.0-37.0); MEAN CORPUSCULAR VOLUME 98.5 fL (80.0-94.0); MEAN PLATELET VOLUME 8.9 fl (7.4-10.4); PLATELET 68 x1000/uL (130-400); RED BLOOD CELL COUNT 3.06 mill/uL (4.7-6.1); RED CELL DISTRIBUTION WIDTH 17.5 % (11.6-14.6); WHITE BLOOD COUNT 10.6 x1000/uL (4.5-11.0)
[2024-06-02 06:22] LABS: DIFFERENTIAL COMMENT 1
[2024-06-02 06:29] LABS: CARBON DIOXIDE 29 mEq/L (21-32); CHLORIDE 114 mEq/L (98-107); POTASSIUM 3.7 mEq/L (3.5-5.1); SODIUM 151 mEq/L (136-145)
[2024-06-02 06:30] LABS: CALCIUM 8.2 mg/dL (8.7-10.4)
[2024-06-02 06:35] LABS: CREATININE 1.1 mg/dL (0.6-1.3); GLUCOSE 106 mg/dL (70-105); UREA NITROGEN BLOOD 44 mg/dL (9-23)
[2024-06-02] MEDS: HYDRALAZINE HCL 100MG TABLET PO SCH (13:10)
[2024-06-02 15:49] LABS: NUCLEATED RED BLOOD CELLS 1 /100 WBC
[2024-06-02 15:50] LABS: ANISOCYTOSIS 1+; PLATELET ESTIMATE DECREASED
[2024-06-03] VITALS (79 sets, daily range): BP systolic 90–168; BP diastolic 61–90; PULSE 3–112; RESP 7–25; TEMP 36.16956–37.05852; O2SAT 99–100
[2024-06-03 06:20] LABS: CARBON DIOXIDE 27 mEq/L (21-32); CHLORIDE 117 mEq/L (98-107); POTASSIUM 3.2 mEq/L (3.5-5.1); SODIUM 152 mEq/L (136-145)
[2024-06-03 06:21] LABS: CALCIUM 8.3 mg/dL (8.7-10.4)
[2024-06-03 06:22] LABS: HEMATOCRIT. 32.1 % (42.0-52.0); HEMOGLOBIN. 10.5 g/dL (14.0-18.0); MEAN CORPUSCULAR HEMOGLOBIN 32.2 pg (28.0-32.0); MEAN CORPUSCULAR HGB CONC 32.7 g/dL (31.0-37.0); MEAN CORPUSCULAR VOLUME 98.7 fL (80.0-94.0); MEAN PLATELET VOLUME 8.9 fl (7.4-10.4); PLATELET 89 x1000/uL (130-400); RED BLOOD CELL COUNT 3.25 mill/uL (4.7-6.1); WHITE BLOOD COUNT 9.3 x1000/uL (4.5-11.0)
[2024-06-03 06:25] LABS: CREATININE 0.8 mg/dL (0.6-1.3); GLUCOSE 97 mg/dL (70-105)
[2024-06-03 06:26] LABS: UREA NITROGEN BLOOD 31 mg/dL (9-23)
[2024-06-03 06:32] LABS: PROTHROMBIN TIME 10.9 sec (9.6-11.0)
[2024-06-03 06:53] LABS: DIFFERENTIAL COMMENT 1
[2024-06-03] MEDS: POTASSIUM CHLORIDE 20MEQ/PACKET PO NR (08:30)
[2024-06-03 10:31] LABS: BG BASE EXCESS 2.6 mmol/L (-2.0-3.0); BG CARBOXYHEMOGLOBIN 0.4 % (0.5-1.5); BG DEOXYHEMOGLOBIN 1.5 % (0.0-5.0); BG HCO3 ACT 26.5 mmol/L (21.0-28.0); BG METHEMOGLOBIN 0.3 % (0.5-1.5); BG OXYGEN SATURATION 98.5 % (94.0-98.0); BG OXYHEMOGLOBIN 97.8 % (94.0-98.0); BG PCO2 38.2 mmHg (35.0-48.0); BG PH 7.459 (7.350-7.450); BG PO2 135.5 mmHg (83.0-108.0); BG TOTAL HEMOGLOBIN 10.3 g/dL (13.5-17.5)
[2024-06-03 11:11] LABS: BG SAMPLE SITE RIGHT RADIAL
[2024-06-03 11:12] LABS: BG FRACTION INSPIRED OXYGEN 30; BG TIDAL VOLUME(mL) 450 mL; BG VENT MODE IMV; BG VENT RATE 14 set
[2024-06-03 11:13] LABS: BG PEEP (cmH2O) 5 cmH2O; BG PRESSURE SUPPORT 10
[2024-06-03 18:10] LABS: NUCLEATED RED BLOOD CELLS 1 /100 WBC
[2024-06-03 18:11] LABS: ANISOCYTOSIS 1+; PLATELET ESTIMATE DECREASED
[2024-06-03] MEDS: LIDOCAINE HCL 1% 10 MG/ML 10ML VIAL ONE (21:20)
[2024-06-03] MEDS: MIDAZOLAM HCL 5 MG/5 ML VIAL IV NR (21:20)
[2024-06-04] VITALS (81 sets, daily range): BP systolic 98–146; BP diastolic 62–89; PULSE 77–102; RESP 6–23; TEMP 36.22512–36.72516; O2SAT 77–100
[2024-06-04 06:13] LABS: CARBON DIOXIDE 26 mEq/L (21-32); CHLORIDE 120 mEq/L (98-107); SODIUM 155 mEq/L (136-145)
[2024-06-04 06:14] LABS: CALCIUM 7.7 mg/dL (8.7-10.4)
[2024-06-04 06:19] LABS: CREATININE 1.1 mg/dL (0.6-1.3); GLUCOSE 117 mg/dL (70-105); UREA NITROGEN BLOOD 60 mg/dL (9-23)
[2024-06-04 06:21] LABS: PHOSPHORUS 2.6 mg/dL (2.5-4.9)
[2024-06-04] MEDS: DESMOPRESSIN ACETATE 4MCG/ML AMP IV SCH (09:21)
[2024-06-04 13:33] LABS: HEMATOCRIT. 26.4 % (42.0-52.0); MEAN CORPUSCULAR HEMOGLOBIN 32.1 pg (28.0-32.0); MEAN PLATELET VOLUME 9.4 fl (7.4-10.4); RED BLOOD CELL COUNT 2.46 mill/uL (4.7-6.1); RED CELL DISTRIBUTION WIDTH 18.7 % (11.6-14.6); WHITE BLOOD COUNT 13.5 x1000/uL (4.5-11.0)
[2024-06-04 13:36] LABS: DIFFERENTIAL COMMENT 1
[2024-06-04 13:40] LABS: HEMOGLOBIN. 7.9 g/dL (14.0-18.0); MEAN CORPUSCULAR VOLUME 107.1 fL (80.0-94.0); PLATELET 135 x1000/uL (130-400)
[2024-06-04 21:16] LABS: ANISOCYTOSIS 1+; HYPOCHROMASIA 1+; PLATELET ESTIMATE NORMAL
[2024-06-05] VITALS (68 sets, daily range): BP systolic 132–164; BP diastolic 61–84; PULSE 65–96; RESP 0–21; TEMP 36.3918–36.55848; O2SAT 10–100
[2024-06-05 05:38] LABS: CHLORIDE 124 mEq/L (98-107); POTASSIUM 3.6 mEq/L (3.5-5.1)
[2024-06-05 05:39] LABS: CALCIUM 7.8 mg/dL (8.7-10.4); CARBON DIOXIDE 26 mEq/L (21-32)
[2024-06-05 05:40] LABS: HEMATOCRIT. 21.4 % (42.0-52.0); MEAN CORPUSCULAR HGB CONC 32.1 g/dL (31.0-37.0); MEAN CORPUSCULAR VOLUME 102.7 fL (80.0-94.0); MEAN PLATELET VOLUME 9.4 fl (7.4-10.4); PLATELET 161 x1000/uL (130-400); RED BLOOD CELL COUNT 2.08 mill/uL (4.7-6.1); RED CELL DISTRIBUTION WIDTH 18.7 % (11.6-14.6); WHITE BLOOD COUNT 10.4 x1000/uL (4.5-11.0)
[2024-06-05 05:44] LABS: CREATININE 1.3 mg/dL (0.6-1.3); GLUCOSE 137 mg/dL (70-105); UREA NITROGEN BLOOD 85 mg/dL (9-23)
[2024-06-05 06:09] LABS: SODIUM 158 mEq/L (136-145)
[2024-06-05 06:31] LABS: DIFFERENTIAL COMMENT 1; HEMOGLOBIN. 6.9 g/dL (14.0-18.0)
[2024-06-05] MEDS: DOCUSATE SODIUM SUGAR FREE 100MG/10ML UDC NG SCH (09:18)
[2024-06-05] MEDS: DESMOPRESSIN ACETATE 4MCG/ML AMP IV SCH (09:19)
[2024-06-05 14:25] LABS: NUCLEATED RED BLOOD CELLS 1 /100 WBC
[2024-06-05 14:26] LABS: ANISOCYTOSIS 1+; PLATELET ESTIMATE NORMAL
[2024-06-05] MEDS: LORAZEPAM 2MG/ML INJ IV PRN (22:11)
[2024-06-06] VITALS (21 sets, daily range): BP systolic 131–157; BP diastolic 68–84; PULSE 59–105; RESP 10–16; TEMP 36.114; O2SAT 0–100
[2024-06-06] MEDS ORDERED: MORPHINE SULFATE 250 MG in DEXT 5% WATER 225 ML IV PRN (10:00)
[2024-06-06] MEDS: MORPHINE SULFATE IV PRN (14:54)
== END 2024-06-06 20:13 | DRG 23 ==
LOC: ER 20:44 → EDBD 20:44 → EDBEDREQ 21:46 → MICUSO 22:05 → EDBEDREQ 22:30 → 7EST 05-23 20:57 → MICUSO 05-27 17:43 → 5EST 06-06 10:40
PROVIDERS: ADMIT Internal Medicine; ATTEND Internal Medicine
PROC: 5A1955Z Respiratory Ventilation, Greater than 96 Consecutive Hours (ICD-10-PCS; principal; 2024-05-27)
PROC: 0BH17EZ Insertion of Endotracheal Airway into Trachea, Via Natural or Artificial Opening (ICD-10-PCS; 2024-05-27)
PROC: 00C40ZZ Extirpation of Matter from Intracranial Subdural Space, Open Approach (ICD-10-PCS; 2024-05-28)
PROC: 00U207Z Supplement Dura Mater with Autologous Tissue Substitute, Open Approach (ICD-10-PCS; 2024-05-28)
PROC: 009630Z Drainage of Cerebral Ventricle with Drainage Device, Percutaneous Approach (ICD-10-PCS; 2024-05-28)
PROC: 4A103BD Monitoring of Intracranial Pressure, Percutaneous Approach (ICD-10-PCS; 2024-05-28)
PROC: 00C00ZZ Extirpation of Matter from Brain, Open Approach (ICD-10-PCS; 2024-05-28)
PROC: 02HV33Z Insertion of Infusion Device into Superior Vena Cava, Percutaneous Approach (ICD-10-PCS; 2024-05-29)
PROC: B548ZZA Ultrasonography of Superior Vena Cava, Guidance (ICD-10-PCS; 2024-05-29)
PROC: 5A1D70Z Performance of Urinary Filtration, Intermittent, Less than 6 Hours Per Day (ICD-10-PCS; 2024-05-29)
PROC: 06HY33Z Insertion of Infusion Device into Lower Vein, Percutaneous Approach (ICD-10-PCS; 2024-05-29)
PROC: 5A1D70Z Performance of Urinary Filtration, Intermittent, Less than 6 Hours Per Day (ICD-10-PCS; 2024-05-31)
PROC: 3E0G8GC Introduction of Other Therapeutic Substance into Upper GI, Via Natural or Artificial Opening Endoscopic (ICD-10-PCS; 2024-06-03)
DX: I61.1 Nontraumatic intracerebral hemorrhage in hemisphere, cortical (principal); A41.9 Sepsis, unspecified organism; N17.0 Acute kidney failure with tubular necrosis; J96.01 Acute respiratory failure with hypoxia; K28.4 Chronic or unspecified gastrojejunal ulcer with hemorrhage; K29.71 Gastritis, unspecified, with bleeding; G93.40 Encephalopathy, unspecified; D62 Acute posthemorrhagic anemia; E87.20 Acidosis, unspecified; G96.08 Other cranial cerebrospinal fluid leak; I16.1 Hypertensive emergency; E87.1 Hypo-osmolality and hyponatremia; E87.0 Hyperosmolality and hypernatremia; I62.00 Nontraumatic subdural hemorrhage, unspecified; Z66 Do not resuscitate; I10 Essential (primary) hypertension; R62.7 Adult failure to thrive; L84 Corns and callosities; Z87.820 Personal history of traumatic brain injury; S50.312A Abrasion of left elbow, initial encounter; S50.311A Abrasion of right elbow, initial encounter; D53.9 Nutritional anemia, unspecified; E87.5 Hyperkalemia; E61.1 Iron deficiency; G40.909 Epilepsy, unspecified, not intractable, without status epilepticus; K59.00 Constipation, unspecified; E27.8 Other specified disorders of adrenal gland; K44.9 Diaphragmatic hernia without obstruction or gangrene; I95.9 Hypotension, unspecified; G35 Multiple sclerosis; X58.XXXA Exposure to other specified factors, initial encounter; S00.531A Contusion of lip, initial encounter; T38.0X5A Adverse effect of glucocorticoids and synthetic analogues, initial encounter; Y92.89 Other specified places as the place of occurrence of the external cause; Y93.89 Activity, other specified; Z78.1 Physical restraint status; Z51.5 Encounter for palliative care; Z98.84 Bariatric surgery status; Y99.8 Other external cause status; Z68.26 Body mass index [BMI] 26.0-26.9, adult
CPT/HCPCS: 31500; 36415; 36556; 36573; 36600; 71045; 72170; 73630; 74176; 76937; 80048; 80053; 80076; 80185; 80305; 80320; 81003; 82140; 82375; 82550; 82607; 82728; 82746; 82805; 82962; 83036; 83540; 83550; 83605; 83735; 83880; 84100; 84132; 84145; 84443; 84478; 84484; 85014; 85018; 85025; 85027; 85044; 85049; 85384; 86705; 86709; 86850; 86900; 86920; 87070; 87340; 88304; 90935; 92610; 94002; 94003; 94640; 97110; 97112; 97116; 97162; 97166; 97530; 97535; 99291; C1725; C1752; C1758; C1887; C1893; J0360; J0610; J0692; J0696; J0885; J1100; J1165; J1580; J1815; J1953; J2060; J2250; J2270; J2470; J2597; J2704; J3490; J7030; J7050; J7070; J7120; J7121; P9016; C1713; G0480